=== PATIENT | male | born 1985 | race Caucasian/White ===

== ENCOUNTER → 2018-12-19 18:06 | Outpatient (CLI) | payer BC, SELFPAY ==
[2018-12-19 20:18] LABS: HIV 1 and 2 Antibody NEGATIVE (NEGATIVE); Hep C Virus Ab w/Reflex Quant NEGATIVE s/c (NEGATIVE)
[2018-12-20 11:56] LABS: Urine N gonorrhoeae NOT DETECTED
[2018-12-20 12:28] LABS: Urine Chlamydia NOT DETECTED
[2018-12-23 14:02] LABS: HSV 1 IgM Screen Negative (Negative); HSV 2 IgM Screen Negative (Negative)
[2018-12-23 14:03] LABS: Hepatitis B Core Antibody Nonreactive (Nonreactive)
[2018-12-23 19:14] LABS: RPR Screen Nonreactive (Nonreactive)
== END ==
PROVIDERS: Visit Provider Physician Assistant
DX: Z11.3 Encounter for screening for infections with a predominantly sexual mode of transmission (principal)
CPT/HCPCS: 36415; 86592; 86694; 86703; 86704; 86803; 87491; 87591

== ENCOUNTER → 2018-12-19 18:18 | Outpatient (CLI) | payer OTHER, SELFPAY | PROVIDERS: Visit Provider Physician Assistant ==

== ENCOUNTER → 2021-06-04 09:27 | Outpatient (CLI) | payer OTHER, SELFPAY ==
[2021-06-04 13:51] LABS: COVID19 -Nasal RAPID Negative (Negative)
== END ==
PROVIDERS: Visit Provider Surgery
DX: Z01.812 Encounter for preprocedural laboratory examination (principal); Z20.822 Contact with and (suspected) exposure to COVID-19
CPT/HCPCS: 87635; C9803

== ENCOUNTER 2021-06-05 07:28 | Day surgery (SDC) | payer OTHER, SELFPAY ==
[2021-06-01 08:31] VITALS: BMI 23.7
[2021-06-05] VITALS (8 sets, daily range): BP systolic 112–129; BP diastolic 72–81; PULSE 60–87; RESP 9–21; TEMP 35.9–36.4; O2SAT 96–100; BMI 23.7
[2021-06-05] MEDS: LACTATED RINGERS 1,000 ML 100 ML IV (07:54)
--- NOTE | 2021-06-05 08:37 | PM.PREOP ---
Pre-operative Note Interval Note History & Physical reviewed/Exam performed by Physician: Yes Changes to H&P: No
[2021-06-05] MEDS: CEFAZOLIN 1 GM VIAL 2 GM IV (08:55)
--- NOTE | 2021-06-05 09:09 | SUR.OPER ---
Supine on padded OR bed, head on pillow, arms secured on padded arm boards at <90 degrees abduction, legs uncrossed, safety belt at thigh, tape over blanket over lower legs. Warm blankets placed to upper and lower of patient.
[2021-06-05] MEDS: BUPIVACAINE 0.25% (PF) VIAL 30 ML INJ (09:14)
--- NOTE | 2021-06-05 09:52 | PM.OP.1 ---
Operative Date/Time/Diagnoses Date of procedure: 06/05/21 Time of procedure: 09:53 Pre-op diagnosis: Umbilical hernia Post-op diagnosis: same Procedure & Clinicians Procedure: Open umbilical hernia repair. Same procedure as scheduled: Yes Indications: 35-year-old man with a reducible umbilical hernia. Surgeon: Fco Silva Click Yes if Unassisted: Yes Anesthesia Type: General Operative Notes Findings: 1 cm fascial defect at the umbilicus. Hernia contained viable omentum. Specimen(s): none sent Estimated Blood Loss (mL): 10 Procedure in detail: Patient was brought to the operating room placed supine on the table. Bilateral lower extremity compression devices were applied. General anesthesia was induced and they were intubated with an endotracheal tube. They received 2 g of Ancef prior to skin incision. They were prepped and draped in sterile fashion. A time-out was performed. A curvilinear incision was made inferior to the umbilicus. The subcutaneous tissues were divided. The umbilical hernia was identified and the hernia sac was dissected off the umbilical skin and circumferentially off of the fascia defect. The hernia sac was sharply opened and contained viable omentum. The omentum was reduced back into the abdomen. The fascial defect was exposed and was approximately 1 cm in maximal diameter. Given the small size of the fascial defect no mesh was used. The fascia was closed in interrupted fashion using Ethibond suture in [id number]. The umbilical skin was tacked to the subcutaneous tissues with Vicryl suture and then the remainder of the subcutaneous tissues were reapproximated using 3 0 Vicry,l skin closed with 4 0 Monocryl followed by the application of Dermabond and Steri-Strips. Sponge instrument count at the end of the operation was correct. Patient tolerated procedure well was extubated and transferred to postoperative care unit in stable condition. Complications: none Post-operative Condition: stable Disposition: same day surgery
[2021-06-05] MEDS: OXYCODONE/ACETAMINOPHEN 5/325 TABLET 1 TAB PO ×2 (10:11→10:46)
[2021-06-05] MEDS: fentaNYL 100 MCG/2 ML INJ IV ×2 (10:13→10:18)
== END 2021-06-05 10:58 | disposition home or self-care (01) ==
PROVIDERS: Referring Provider Surgery; Visit Provider Surgery
PROC: (CPT 49585; principal; 2021-06-05 08:45)
DX: K42.9 Umbilical hernia without obstruction or gangrene (principal); F41.9 Anxiety disorder, unspecified; F32.9 Major depressive disorder, single episode, unspecified; G47.33 Obstructive sleep apnea (adult) (pediatric)
CPT/HCPCS: 49585; 82962; J0690; J1100; J1885; J2250; J2405; J2704; J3010

== ENCOUNTER 2022-07-06 14:06 | Emergency (ER) | payer OTHER, SELFPAY ==
[2022-07-06 14:20] VITALS: BP 135/84; PULSE 94; RESP 18; TEMP 36.5; O2SAT 98; BMI 20.9
--- NOTE | 2022-07-06 16:49 | ED.WOUNDLAC ---
HPI - Wound/Laceration <Cali Chirinos PA-C - Last Filed: 07/06/22 18:02> General Chief Complaint: Wound/Laceration Stated Complaint: cyst on tailbone x4days Time Seen by Provider: 07/06/22 16:11 Source: patient Mode of arrival: Ambulatory History of Present Illness HPI narrative: Patient is a 36-year-old male who presents to the emergency room today with complaint of a painful bump in his butt crease that has been draining for the last 4 days. States he is never had this type of condition before. 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 Related Data Home Medications Medication Instructions Recorded Confirmed bupropion HCl 300 mg 24 hr tablet, 300 mg PO QAM 03/15/21 10/29/21 extended release clonidine HCl 0.2 mg tablet 0.2 mg PO BEDTIME 03/15/21 10/29/21 aripiprazole 2 mg tablet 2 mg PO DAILY 10/29/21 10/29/21 gabapentin 600 mg tablet 600 mg PO TID 10/29/21 10/29/21 methylphenidate HCl 20 mg tablet 20 mg PO TID 10/29/21 10/29/21 Previous Rx's Medication Instructions Recorded sulfamethoxazole 800 1 tab PO BID #14 tabs 07/06/22 mg-trimethoprim 160 mg tablet (Bactrim DS) Allergies Allergy/AdvReac Type Severity Reaction Status Date / Time No Known Drug Allergies Allergy Verified 10/29/21 14:26 Review of Systems <NELLY Diallo Last Filed: 07/06/22 18:02> Review of Systems Narrative: R.O.S.: General: No fever, chills or fatigue. Cardiovascular: No chest pain or palpitations Respiratory: No S.O.B. HEENT: No congestion, ear pain, rhinorrhea, sore throat or tinnitus Gastrointestinal: No nausea or vomiting : No urinary concerns Skin: Painful bump to the back area. Musculoskeletal: No pain in muscles or joints, no limitation of range of motion, no paresthesia or numbness. ?? Neurological: Awake, alert and in not apparent distress. No Headaches, changes in vision or other related neurological concerns. Patient History <Cali Chirinos PA-C - Last Filed: 07/06/22 18:02> Medical History ADHD (attention deficit hyperactivity disorder) (~1994) Anxiety Depression Eczema Insomnia with sleep apnea, unspecified Obstructive sleep apnea syndrome (~2017) Sinus drainage Snoring (~2014) Surgical History [place] teeth removed (2011) Family History Family/Other Loud snoring Sleep apnea Hypertension Diabetes mellitus Heart disease Dementia Father Loud snoring Mother Depression Anxiety Family/Other Depression Anxiety Social History household members: spouse Smoking Status: Never smoker alcohol intake: former Smoking Status: Never smoker Substance Use Type: does not use Exam <Cali Chirinos PA-C - Last Filed: 07/06/22 18:02> Narrative Exam Narrative: Physical Exam: ? General: normal appearance, well developed, well nourished, alert, and awake. Not in acute distress. ? Head: Normocephalic, no lesions. Chest: Lungs CTAB, no rales, rhonchi or wheezes. ?? Heart: RRR, no murmurs, rubs or gallops. Eyes: PERRLA, EOM's full, conjunctivae clear. ? Neuro: Physiological, no localizing findings, CN3-12 intact. ?? Extremities: Warm, well perfused, FROM, no deformities, no edema. ?? Skin: Patient has a fluctuant raised erythematous area to the right superior butt crease area. The area has no drainage at this time. ? PSYCHIATRIC: The mood is good, no blunted affect. Speech is clear. Thought process is linear, thought content is appropriate. The voice is without significant inflection. Gastrointestinal: Soft; NT; ND; Pos BS with Neg. rebound tenderness. No scars or major deformities noted on Visual Inspection. Initial Vital Signs Initial Vital Signs: Vital Signs Temperature 97.7 F 07/06/22 14:20 Pulse Rate 94 H 07/06/22 14:20 Respiratory Rate 18 07/06/22 14:20 Blood Pressure 135/84 07/06/22 14:20 Pulse Oximetry 98 07/06/22 14:20 Oxygen Delivery Method 07/06/22 14:20 <Gayla Guadarrama DO - Last Filed: 07/07/22 11:13> Initial Vital Signs Initial Vital Signs: Vital Signs Temperature 97.7 F 07/06/22 14:20 Pulse Rate 94 H 07/06/22 14:20 Respiratory Rate 18 07/06/22 14:20 Blood Pressure 135/84 07/06/22 14:20 Pulse Oximetry 98 07/06/22 14:20 Oxygen Delivery Method 07/06/22 14:20 Procedures <Cali Chirinos PA-C - Last Filed: 07/06/22 18:02> Abscess I/D I&D #1: Site: other (Superior buttock crease) Side (if applicable): right Sedation/analgesia: other (Lidocaine with epi) Local Anesthetic: lidocaine 2% Technique: incised with #11 blade Amount of fluid expressed (mL): 4 Course <Cali Chirinos PA-C - Last Filed: 07/06/22 18:02> Orders Ordered: Discontinued Medications Lidocaine HCl (Lidocaine 2% Inj Sdv) 5 ml INJ INTRA-OP ONE Stop: 07/06/22 16:57 Last Admin: 07/06/22 17:01 Dose: 5 ml Documented By: SARA Vital Signs Vital signs: Vital Signs - 8 hr 07/06/22 14:20 Temperature 97.7 F Pulse Rate 94 H Respiratory Rate 18 Blood Pressure 135/84 Pulse Oximetry 98 Oxygen Delivery Method Room Air <Gayla Guadarrama DO - Last Filed: 07/07/22 11:13> Orders Ordered: Discontinued Medications Lidocaine HCl (Lidocaine 2% Inj Sdv) 5 ml INJ INTRA-OP ONE Stop: 07/06/22 16:57 Last Admin: 07/06/22 17:01 Dose: 5 ml Documented By: SARA Vital Signs Vital signs: Vital Signs - 8 hr 07/06/22 14:20 Temperature 97.7 F Pulse Rate 94 H Respiratory Rate 18 Blood Pressure 135/84 Pulse Oximetry 98 Oxygen Delivery Method Room Air MDM - Wound/Laceration <NELLY Diallo Last Filed: 07/06/22 18:02> MDM Narrative Medical decision making narrative: Patient presents to emergency with a classic pilonidal cyst cyst was drained culture was sent to lab and dressing was applied. Antibiotics were ordered patient advised on care of and instructions for indications to return to the ER. Patient agrees plan Discharge Plan Departure Patient Disposition: Home Clinical Impression: Cyst, pilonidal, with abscess Instructions: DI for Pilonidal Cyst Drainage or Removal Activity Restrictions/Additional Instructions: *You have been diagnosed with pilonidal cyst. Your cysts were drained for secretions today. You were also ordered antibiotics to help with the remaining infection. A dressing was also applied with instructions for care. I suggest you care for the site as instructed continue to clean and free from foreign body intrusion and I suggest she return to the emergency room if any emergent concerns arise. [ ] *What to do: *Please continue to take your regular medications as directed. [ ] New medication prescriptions sent to your pharmacy: [ ] [x] New medication written as a paper prescription [ ] No new medications given *Please follow up with your primary care provider in 2-3 days, call for an appointment. Let them know you were seen in the Emergency Department and that we ask that you be seen in follow up. We will electronically transmit a record of today's note if your PCP is in our system *If you do not have a primary care provider please contact the [facility] Resource line at [phone]. They will ask some questions about your medical history and help get you set up with a doctor in the community. *Return to Emergency Department if you should have any new, worsening or concerning symptoms, such as [fever greater than 101 F, shaking chills, worsening pain, persistent vomiting or other bothersome symptoms] Prescriptions: New sulfamethoxazole-trimethoprim [Bactrim DS] 800-160 mg tablet 1 tab PO BID Qty: 14 0RF No Action bupropion HCl 300 mg tablet extended release 24 hr 300 mg PO QAM clonidine HCl 0.2 mg tablet 0.2 mg PO BEDTIME gabapentin 600 mg tablet 600 mg PO TID methylphenidate HCl 20 mg tablet 20 mg PO TID Label Comments: Taking 20 tablet BID, 1 full tab midday and 1/2 tab around 1600 aripiprazole 2 mg tablet 2 mg PO DAILY Referrals: Kranthi Gray MD [Primary Care Provider] - Visit Report Forms: Patient Portal/API <Gayla Guadarrama DO - Last Filed: 07/07/22 11:13> Cosign ED Attending Cosignature Attestation: I was immediately available in the department for consultation. Documentation has been reviewed.
[2022-07-06] MEDS: LIDOCAINE 2% INJ SDV 5 ML INJ (17:01)
[2022-07-06 18:01] VITALS: BP 130/80; PULSE 89; RESP 18; O2SAT 98
== END 2022-07-06 18:01 | disposition home or self-care (01) ==
PROVIDERS: Emergency Provider Physician Assistant; PCP Family Medicine
DX: L05.01 Pilonidal cyst with abscess (principal)
CPT/HCPCS: 10060; 87070; 87075; 87077; 87147; 87186; 87205; 99283